=== PATIENT | male | born 1955 | race Caucasian/White ===

== ENCOUNTER → 2018-07-27 12:09 | Outpatient (CLI) | payer OTHER, SELFPAY ==
--- NOTE | 2018-07-27 12:17 | DI.RAD.S_ITS ---
PROCEDURE: XR HIP W PEL IF DONE RT 2V INDICATIONS: Right Hip pain TECHNIQUE: AP pelvis with lateral view(s) of the right hip(s). COMPARISON: None. FINDINGS: Bones: No fractures or dislocations. Pelvic ring appears intact. No suspicious bony lesions. Rzdj-bw-jcamvcdz bilateral hip degeneration. Lower lumbar spondylosis. Soft tissues: The visualized bowel gas pattern is normal. No suspicious soft tissue calcifications. IMPRESSION: Tqkx-pp-ijlsynpd bilateral hip degeneration. Lower lumbar spondylosis. Dictated by: Nabeel Domínguez M.D. on 07/27/2018 at 14:07 Approved by: Nabeel Domínguez M.D. on 07/27/2018 at 14:08
== END ==
PROVIDERS: PCP Student in an Organized Health Care Education/Training Program; Visit Provider Student in an Organized Health Care Education/Training Program
DX: M25.551 Pain in right hip (principal); M16.0 Bilateral primary osteoarthritis of hip; M47.816 Spondylosis without myelopathy or radiculopathy, lumbar region
CPT/HCPCS: 73502

== ENCOUNTER → 2019-01-03 10:35 | Outpatient (CLI) | payer OTHER, SELFPAY | PROVIDERS: PCP Student in an Organized Health Care Education/Training Program; Visit Provider Registered Nurse | DX: N34.2 Other urethritis (principal) | CPT/HCPCS: 87070; 87205 ==

== ENCOUNTER → 2019-12-27 09:47 | Outpatient (CLI) | payer OTHER, SELFPAY ==
[2019-12-27 11:45] LABS: BUN Creatinine Ratio 22.5 (6-22); Blood Urea Nitrogen 16 mg/dL (9-20); Calcium 9.3 mg/dL (8.4-10.2); Carbon Dioxide 31 mmol/L (22-32); Chloride 106 mmol/L (98-107); Estimated Glomerular Filt Rate > 60.0 mL/min (>60); Glucose 89 mg/dL (80-110); HEMOLYSIS < 15 (0-50); Potassium 4.2 mmol/L (3.4-5.1); Sodium 140 mmol/L (137-145)
[2019-12-27 11:59] LABS: Vitamin D 25 Hydroxy (D3) 23.2 ng/mL (30.0-100.0)
[2019-12-27 12:14] LABS: Prostate Specific Antigen Scrn 0.474 ng/mL (0.1-4.0)
== END ==
PROVIDERS: PCP Student in an Organized Health Care Education/Training Program; Referring Provider Student in an Organized Health Care Education/Training Program; Visit Provider Student in an Organized Health Care Education/Training Program
DX: Z12.5 Encounter for screening for malignant neoplasm of prostate (principal); F41.1 Generalized anxiety disorder; Z79.899 Other long term (current) drug therapy; E55.9 Vitamin D deficiency, unspecified
CPT/HCPCS: 36415; 80048; 82306; G0103

== ENCOUNTER → 2020-02-04 11:18 | Outpatient (CLI) | payer OTHER, SELFPAY ==
[2020-02-05 18:36] LABS: Fecal Immunochemical Test Negative (Negative)
== END ==
PROVIDERS: PCP Student in an Organized Health Care Education/Training Program; Referring Provider Student in an Organized Health Care Education/Training Program; Visit Provider Student in an Organized Health Care Education/Training Program
DX: Z12.11 Encounter for screening for malignant neoplasm of colon (principal)
CPT/HCPCS: 82274

== ENCOUNTER → 2021-02-02 10:22 | Outpatient (CLI) | payer OTHER, SELFPAY ==
[2021-02-02 11:16] LABS: Cholesterol 222 mg/dL (140-199); HDL Cholesterol 47 mg/dL (40-60); LDL Cholesterol Calculated 151 mg/dL (<100); Triglycerides 119 mg/dL (35-150)
[2021-02-02 11:42] LABS: Prostate Specific Antigen Scrn 0.526 ng/mL (0.1-4.0)
== END ==
PROVIDERS: PCP Student in an Organized Health Care Education/Training Program; Referring Provider Student in an Organized Health Care Education/Training Program; Visit Provider Student in an Organized Health Care Education/Training Program
DX: Z13.220 Encounter for screening for lipoid disorders (principal); Z12.5 Encounter for screening for malignant neoplasm of prostate
CPT/HCPCS: 36415; 80061; G0103

== ENCOUNTER → 2021-02-04 12:28 | Outpatient (CLI) | payer OTHER, SELFPAY ==
[2021-02-05 10:15] LABS: Fecal Immunochemical Test Negative (Negative)
== END ==
PROVIDERS: PCP Student in an Organized Health Care Education/Training Program; Referring Provider Student in an Organized Health Care Education/Training Program; Visit Provider Student in an Organized Health Care Education/Training Program
DX: Z12.11 Encounter for screening for malignant neoplasm of colon (principal)
CPT/HCPCS: 82274

== ENCOUNTER → 2021-07-20 14:46 | Outpatient (CLI) | payer OTHER, SELFPAY ==
--- NOTE | 2021-07-20 14:47 | DI.RAD.S_ITS ---
PROCEDURE: XR SACRUM COCCYX MIN 2V INDICATIONS: Low back pain from fall TECHNIQUE: 3 views of the sacrum and coccyx acquired. COMPARISON: None. FINDINGS: Bones: No acute, displaced fracture. No suspicious bony lesions. Soft tissues: Visualized bowel gas pattern is normal. No suspicious soft tissue densities. IMPRESSION: No acute osseous abnormality. Dictated by: Toni Casiano M.D. on 07/20/2021 at 16:43 Approved by: Toni Casiano M.D. on 07/20/2021 at 16:44
--- NOTE | 2021-07-20 14:47 | DI.RAD.S_ITS ---
PROCEDURE: XR LUMBAR SPINE 2-3V INDICATIONS: Low back pain from fall TECHNIQUE: 3 views of the lumbar spine were acquired. COMPARISON: None. FINDINGS: Bones: 5 alx-frs-xhalkgg vertebrae are present. Moderate to advanced disc height loss with endplate osteophytosis at L5-S1. Facet arthrosis, most prominent at L5-S1. No vertebral body compression fractures. Soft tissues: Overlying bowel gas pattern is normal. No suspicious soft tissue calcifications. IMPRESSION: Lumbar spine degenerative changes detailed above. Dictated by: Toni Casiano M.D. on 07/20/2021 at 16:44 Approved by: Toni Casiano M.D. on 07/20/2021 at 16:45
== END ==
PROVIDERS: PCP Student in an Organized Health Care Education/Training Program; Referring Provider Student in an Organized Health Care Education/Training Program; Visit Provider Student in an Organized Health Care Education/Training Program
DX: M47.816 Spondylosis without myelopathy or radiculopathy, lumbar region; M47.817 Spondylosis without myelopathy or radiculopathy, lumbosacral region
CPT/HCPCS: 72100; 72220

== ENCOUNTER → 2021-07-22 08:43 | Outpatient (CLI) | payer OTHER, SELFPAY ==
[2021-07-22 09:54] LABS: Cholesterol 164 mg/dL (140-199); HDL Cholesterol 50 mg/dL (40-60); LDL Cholesterol Calculated 98 mg/dL (<100); Triglycerides 80 mg/dL (35-150)
== END ==
PROVIDERS: PCP Student in an Organized Health Care Education/Training Program; Referring Provider Student in an Organized Health Care Education/Training Program; Visit Provider Student in an Organized Health Care Education/Training Program
DX: E78.00 Pure hypercholesterolemia, unspecified (principal)
CPT/HCPCS: 36415; 80061

== ENCOUNTER 2022-05-10 07:09 | Emergency (ER) | payer OTHER, SELFPAY ==
[2022-05-10] VITALS (15 sets, daily range): BP systolic 130–179; BP diastolic 72–82; PULSE 62–79; RESP 8–17; TEMP 36.3; O2SAT 96–100; BMI 24.2
--- NOTE | 2022-05-10 07:30 | DI.CT.S_ITS ---
PROCEDURE: CT HEAD/BRAIN WO CON INDICATIONS: L eye changes and L arm weaknes TECHNIQUE: Noncontrast 4.5 mm thick angled axial sections acquired from the foramen magnum to the vertex, with coronal and sagittal reformats. For radiation dose reduction, the following was used: automated exposure control, adjustment of mA and/or kV according to patient size. COMPARISON: None. FINDINGS: Image quality: Excellent. CSF spaces: Basal cisterns are patent. No extra-axial fluid collections. Ventricles are normal in size and shape. Brain: No midline shift. No intracranial masses or hemorrhage. Montoya-white matter interface is normal. There are subtle hyperdensities in the basal ganglia bilaterally, left greater than right, likely representing very early basal ganglia calcifications. Skull and face: Calvarium and visualized facial bones are intact, without suspicious lesions. Sinuses: Visualized sinuses and mastoids are clear. IMPRESSION: 1. No evidence acute stroke, hemorrhage, or mass. Comment: If suspect acute stroke, consider brain MRI. Dictated by: Benito Hyman M.D. on 05/10/2022 at 7:59 Approved by: Benito Hyman M.D. on 05/10/2022 at 8:01
[2022-05-10 07:47] LABS: Add Manual Diff / Slide Review NO; Basophils Absolute Auto 0 /uL (0-100); Basophils Percent Auto 0.5 % (0-2); Eosinophils Absolute Auto 100 /uL (0-450); Eosinophils Percent Auto 1.1 % (2-4); Hematocrit 40.2 % (41-53); Hemoglobin 13.9 g/dL (13.5-17.5); Lymphocytes Absolute Auto 1300 /uL (1100-4500); Lymphocytes Percent Auto 24.9 % (25-40); Mean Corpuscular HGB Conc 34.5 % (30-36); Mean Corpuscular Hemoglobin 32.5 PG (26-34); Mean Corpuscular Volume 94.3 fL (80-100); Monocytes Absolute Auto 300 /uL (0-900); Monocytes Percent Auto 6.1 % (3-14); Neutrophils Absolute Auto 3500 /uL (1500-7000); Neutrophils Percent Auto 67.4 % (50-75); Platelet Count 192 X10^3/uL (150-400); Red Blood Cell Count 4.27 X10^6/uL (4.5-5.9); Red Cell Distribution Width 12.8 % (11.6-14.8); White Blood Cell Count 5.2 X10^3/uL (4.5-11.0)
[2022-05-10 08:19] LABS: BUN Creatinine Ratio 17.6 (6-22); Blood Urea Nitrogen 12 mg/dL (9-20); Calcium 8.6 mg/dL (8.4-10.2); Carbon Dioxide 28 mmol/L (22-32); Chloride 104 mmol/L (98-107); Estimated Glomerular Filt Rate > 60 mL/min (>60); Glucose 130 mg/dL (80-110); HEMOLYSIS 17 (0-50); Potassium 3.7 mmol/L (3.4-5.1); Sodium 141 mmol/L (137-145)
--- NOTE | 2022-05-10 08:21 | DI.MRI.S_ITS ---
PROCEDURE: MR STROKE Pre- and post-contrast brain MRI, non-contrast brain MR angiogram, pre- and postcontrast neck MR angiogram INDICATIONS: L eye changes and L arm weakness TECHNIQUE: Brain: Noncontrast axial T1 spin echo, axial T2 fast spin echo, sagittal and axial FLAIR, coronal T2 fast spin echo, axial gradient echo, axial diffusion and ADC through the brain. After the administration of contrast, axial 3D VIBE of the cranial vasculature and brain. Brain MRA: Non-contrast 3-D time of flight MR angiogram, with multiple qoqaobf-vjrxwhrvi-diudjjowjm (MIP) reformats performed. Neck MRA: Axial and sagittal TruFISP through the neck. Coronal dynamic MR angiogram during administration of contrast in the arterial and venous phases, with 3-dimenstional recrazb-fcdspouni-qtkuehibsu (MIP) reformats constructed from subtraction images. COMPARISON: [facility], CT, CT HEAD/BRAIN WO CON, 05/10/2022, 7:42. FINDINGS: Image quality: Excellent. BRAIN: CSF spaces: Ventricles are normal in size and shape. Basal cisterns are patent. No extra-axial fluid collections. Brain: No intracranial bleeds or mass effects. Montoya-white matter interface is normal. Diffusion weighted images show no acute ischemic insults. Brainstem appears normal. Normal intravascular flow voids are present. No abnormal intracranial enhancement. Skull and face: Calvarial marrow signal is normal. Orbits appear normal. Sinuses: Sinuses and mastoids are clear. BRAIN MR ANGIOGRAM: Anterior circulation: Intracranial internal carotid arteries are normal in size and enhancement. The flow within the paired anterior cerebral arteries is normal and symmetric. The flow within the middle cerebral arteries is normal and symmetric. The anterior communicating artery is seen. No stenoses, occlusions, or aneurysms. Posterior circulation: The visualized portions of the vertebral arteries demonstrate normal caliber, and join to form a normal appearing basilar artery. The flow within the posterior cerebral arteries is normal and symmetric. No stenoses, occlusions, or aneurysms. NECK MR ANGIOGRAM: Carotids: Great vessels demonstrate a conventional anatomy as they arise from the aortic arch. The origins of the common carotid arteries appear patent. The calibers and courses of both common carotid arteries are normal. The bifurcation regions appear normal bilaterally. The internal carotid arteries demonstrate normal course and caliber. Posterior circulation: The origins of the vertebral arteries appear patent. More superior portions of both vertebral arteries demonstrate normal course and caliber, and join to form a normal appearing basilar artery. Miscellaneous: Subclavian arteries appear patent. Pre-contrast images through the neck show no soft tissue abnormalities. IMPRESSION: 1. No acute intracranial process. 2. No areas of hemodynamically significant stenosis, vascular occlusion or aneurysmal dilation within the anterior circulation. 3. No areas of hemodynamically significant stenosis, vascular occlusion or aneurysmal dilation within the posterior circulation. 4. No areas of hemodynamically significant stenosis, vascular occlusion or aneurysmal dilation within the neck vasculature. Dictated by: Mary Cast M.D. on 05/10/2022 at 11:05 Approved by: Mary Cast M.D. on 05/10/2022 at 11:17
--- NOTE | 2022-05-10 08:21 | ED_ITS ---
HPI - General Adult General Chief complaint: Eye Problems Stated complaint: POSSIBLE STROKE Time Seen by Provider: 05/10/22 07:22 Source: patient and family Mode of arrival: Ambulatory Limitations: no limitations History of Present Illness HPI narrative: patient is a 66-year-old male. Does wear corrective lenses. Also has a history of migraine headaches. Has not had a migraine and sometime. No prior eye surgeries. On Tuesday had a fairly sudden onset of what he describes as a floater in his left eye. He describes it in the upper portion of his left eye. It does not move when he looks in different directions. It does not involve his right eye. He does not have headache. No problems swallowing. He is also noticed some numbness in his left arm and his left upper chest. He describes it as a cool sensation. That is still there but he does not notice it as much unless something touches his arm. This occurred 3 days ago. It has been consistent since then. Has not tried anything for his symptoms. He went to an outside emergency department yesterday but after walking in noticed that there was a long wait so he decided to stay locally and then come to this emergency department this morning. Related Data Home Medications Medication Instructions Recorded Confirmed loratadine 10 mg tablet (Allergy 10 mg PO DAILY 03/02/18 07/20/21 Relief (loratadine)) Previous Rx's Medication Instructions Recorded famotidine 20 mg tablet 20 mg PO DAILY #90 tabs 05/31/20 paroxetine HCl 20 mg tablet (Paxil) 20 mg PO DAILY #90 tabs 07/22/21 atorvastatin 20 mg tablet 20 mg PO BEDTIME #90 tabs 03/10/22 Allergies Allergy/AdvReac Type Severity Reaction Status Date / Time No Known Drug Allergies Allergy Verified 07/20/21 14:15 Review of Systems Review of Systems ROS Unobtainable: All systems reviewed & are unremarkable except as noted in HPI and below Patient History Medical History Foot pain (2016) Migraines (1983) Right hip pain Shoulder pain (2015) Tinnitus of both ears (2007) Surgical History (Updated 03/02/18 @ 15:03 by Ronel Fletcher LPN) Hx of knee surgery (2001) Family History (Updated 03/02/18 @ 15:04 by Ronel Fletcher LPN) Father Cancer Mother No problems noted. Social History Smoking Status: Never smoker alcohol intake: current substance use type: does not use Smoking Status: Never smoker alcohol intake frequency: a few times a month Substance Use Type: does not use Exam Initial Vital Signs Initial Vital Signs: Vital Signs Temperature 97.4 F L 05/10/22 07:17 Pulse Rate 72 05/10/22 07:17 Respiratory Rate 16 05/10/22 07:17 Blood Pressure 179/81 H 05/10/22 07:17 Pulse Oximetry 100 05/10/22 07:17 Oxygen Delivery Method 05/10/22 07:17 Const General: comfortable and well developed HENMT Head: normal to inspection and normocephalic Face and sinus: normal facial exam Mouth: oral mucosae normal Eyes Conjunctivae: conjunctivae normal Pupils: PERRL Resp Effort & Inspection: normal respiratory effort Auscultation: clear to auscultation bilaterally Cardio Rate: regular rate Rhythm: regular rhythm GI Inspection: normal to inspection Skin General: no rashes or lesions noted Neuro General: patient alert, patient awake, patient oriented x3 and moves all extremities Cranial Nerves: CN's II-XI intact bilaterally Cognition: normal cognition Speech: speech normal Gait: normal gait Motor: muscle tone normal throughout Extrem General: normal to inspection and capillary refill normal Psych Appearance: grossly normal and well kempt Scores GCS Agata coma scale eye opening: Spontaneous Captiva coma scale verbal response: Orientated Captiva coma scale motor response: Obey commands Captiva coma scale total score: 15 NIH Stroke Scale Level of Conciousness: Alert, keenly responsive Ask month/age: Answers both questions correctly. Open/close eyes, close hand: Performs both tasks correctly Best gaze horizontal: Normal Visual burger: No visual loss Facial palsy: Normal symetrical movement Left arm drift: No drift for full 10 sec Right arm drift: No drift for full 10 sec Left leg drift: No drift for full 5 sec Right leg drift: No drift for full 5 sec Limb ataxia: Absent Sensory on face/arms/legs: Mild to moderate sensory loss, can tell touch Best language: No aphasia, normal Dysarthria: Normal Extinction or inattention: No abnormality Total NIH Stroke scale score: 1 Course Orders Ordered: Discontinued Medications Diazepam (Diazepam 10 Mg/2 Ml Syringe) 2 mg IV NOW ONE Stop: 05/10/22 09:37 Last Admin: 05/10/22 09:45 Dose: 2 mg Documented By: RB Vital Signs Vital signs: Vital Signs - 8 hr 05/10/22 10:50 05/10/22 10:51 05/10/22 10:51 Pulse Rate 68 76 Respiratory Rate Blood Pressure 159/82 H Pulse Oximetry 99 99 05/10/22 11:00 05/10/22 11:00 05/10/22 11:30 Pulse Rate 66 Respiratory Rate 16 Blood Pressure 140/75 130/72 Pulse Oximetry 98 05/10/22 11:30 05/10/22 12:00 05/10/22 12:00 Pulse Rate 68 67 Respiratory Rate 14 12 Blood Pressure 142/76 H Pulse Oximetry 96 97 Medical Decision Making Lab Data Lab results reviewed: Yes I reviewed the patient's lab results. Result diagrams: 05/10/22 07:25 05/10/22 07:25 Labs: Lab Results 05/10/22 05/10/22 Range/Units 07:25 07:25 WBC 5.2 (4.5-11.0) X10^3/uL RBC 4.27 L (4.5-5.9) X10^6/uL Hgb 13.9 (13.5-17.5) g/dL Hct 40.2 L (41-53) % MCV 94.3 (80-100) fL MCH 32.5 (26-34) PG MCHC 34.5 (30-36) % RDW 12.8 (11.6-14.8) % Plt Count 192 (150-400) X10^3/uL Neut % (Auto) 67.4 (50-75) % Lymph % (Auto) 24.9 L (25-40) % Billings % (Auto) 6.1 (3-14) % Eos % (Auto) 1.1 L (2-4) % Baso % (Auto) 0.5 (0-2) % Neut # (Auto) 3500 (3423-8427) /uL Lymph # (Auto) 1300 (1560-5767) /uL Billings # (Auto) 300 (0-900) /uL Eos # (Auto) 100 (0-450) /uL Baso # (Auto) 0 (0-100) /uL Sodium 141 (137-145) mmol/L Potassium 3.7 (3.4-5.1) mmol/L Chloride 104 (98-107) mmol/L Carbon Dioxide 28 (22-32) mmol/L BUN 12 (9-20) mg/dL Creatinine 0.68 (0.66-1.25) mg/dL Estimated GFR > 60 (>60) mL/min BUN/Creatinine Ratio 17.6 (6-22) Glucose 130 H (80-110) mg/dL Calcium 8.6 (8.4-10.2) mg/dL Imaging Data CT scan - head: Radiologist's Impression: Close Head CT (Signed) Benito Hyman - 05/10/22 Sacrum and Coccyx X-Ray (Signed) Toni Casiano - 07/20/21 Lumbar Spine X-Ray (Signed) Toni Casiano - 07/20/21 Hip X-Ray (Signed) Nabeel Domínguez - 07/27/18 [place] [address] CT Scan Report Signed Patient: Chava Anderson MR#: [id number] : 1955 Acct:[id number] Age/Sex: 66 / M Date of Service: 05/10/22 Loc: ED Accession Number: [id number] ?? Procedure: CT head/brain wo con Ordering Provider: Antonio Bain D.O. PROCEDURE:? CT HEAD/BRAIN WO CON ? INDICATIONS:? L eye changes and L arm weaknes ? TECHNIQUE:? Noncontrast 4.5 mm thick angled axial sections acquired from the foramen magnum to the vertex, with coronal and sagittal reformats.? For radiation dose reduction, the following was used:? automated exposure control, adjustment of mA and/or kV according to patient size.? ? COMPARISON:? None. ? FINDINGS:? Image quality:? Excellent.? ? CSF spaces:? Basal cisterns are patent.? No extra-axial fluid collections.? Ventricles are normal in size and shape.? ? Brain:? No midline shift.? No intracranial masses or hemorrhage.? Montoya-white matter interface is normal.? There are subtle hyperdensities in the basal ganglia bilaterally, left greater than right, likely representing very early basal ganglia calcifications. ? Skull and face:? Calvarium and visualized facial bones are intact, without suspicious lesions.? ? Sinuses:? Visualized sinuses and mastoids are clear.? ? IMPRESSION:? ? 1. No evidence acute stroke, hemorrhage, or mass. ? Comment:? If suspect acute stroke, consider brain MRI.? ? ? Dictated by: Benito Hyman M.D. on 05/10/2022 at 7:59 ? ? Approved by: Benito Hyman M.D. on 05/10/2022 at 8:01 MR stroke: Radiologist's Impression: [place] [address] Magnetic Resonance Report Signed Patient: Chava Anderson MR#: [id number] : 1955 Acct:[id number] Age/Sex: 66 / M Date of Service: 05/10/22 Loc: ED Accession Number: [id number] ?? Procedure: MR stroke Ordering Provider: Antonio Bain D.O. PROCEDURE:? MR STROKE Pre- and post-contrast brain MRI, non-contrast brain MR angiogram, pre- and po stcontrast neck MR angiogram ? INDICATIONS:? L eye changes and L arm weakness ? TECHNIQUE:? Brain:? Noncontrast axial T1 spin echo, axial T2 fast spin echo, sagittal and axial FLAIR, coronal T2 fast spin echo, axial gradient echo, axial diffusion and ADC through the brain.? After the administration of contrast, axial 3D VIBE of the cranial vasculature and brain.? Brain MRA:? Non-contrast 3-D time of flight MR angiogram, with multiple tzwnxyb-myvxzcbuu-mfnmqdntvc (MIP) reformats performed.? Neck MRA:? Axial and sagittal TruFISP through the neck.? Coronal dynamic MR angiogram during administration of contrast in the arterial and venous phases, with 3- dimenstional kocvkhc-ctjrfhdpi-oqpcyzpewa (MIP) reformats constructed from subtraction images.? ? COMPARISON:? [facility], CT, CT HEAD/BRAIN WO CON, 05/10/2022, 7:42. ? FINDINGS:? Image quality:? Excellent.? ? BRAIN:? CSF spaces:? Ventricles are normal in size and shape.? Basal cisterns are patent.? No extra-axial fluid collections.? Brain:? No intracranial bleeds or mass effects.? Montoya-white matter interface is normal.? Diffusion weighted images show no acute ischemic insults.? Brainstem appears normal.? Normal intravascular flow voids are present.? No abnormal intracranial enhancement.? Skull and face:? Calvarial marrow signal is normal.? Orbits appear normal.? Sinuses:? Sinuses and mastoids are clear.? ? BRAIN MR ANGIOGRAM:? Anterior circulation:? Intracranial internal carotid arteries are normal in size and enhancement.? The flow within the paired anterior cerebral arteries is normal and symmetric.? The flow within the middle cerebral arteries is normal and symmetric.? The anterior communicating artery is seen.? No stenoses, occlusions, or aneurysms.? Posterior circulation:? The visualized portions of the vertebral arteries demonstrate normal caliber, and join to form a normal appearing basilar artery.? The flow wi thin the posterior cerebral arteries is normal and symmetric.? No stenoses, occlusions, or aneurysms.? ? NECK MR ANGIOGRAM:? Carotids:? Great vessels demonstrate a conventional anatomy as they arise from the aortic arch.? The origins of the common carotid arteries appear patent.? The calibers and courses of both common carotid arteries are normal.? The bifurcation regions appear normal bilaterally.? The internal carotid arteries demonstrate normal course and caliber. ? Posterior circulation:? The origins of the vertebral arteries appear patent.? More superior portions of both vertebral arteries demonstrate normal course and caliber, and join to form a normal appearing basilar artery.? Miscellaneous:? Subclavian arteries appear patent.? Pre-contrast images through the neck show no soft tissue abnormalities.? ? IMPRESSION:? ? 1. No acute intracranial process. ? 2. No areas of hemodynamically significant stenosis, vascular occlusion or aneurysmal dilation within the anterior circulation. ? 3. No areas of hemodynamically significant stenosis, vascular occlusion or aneurysmal dilation within the posterior circulation. ? 4. No areas of hemodynamically significant stenosis, vascular occlusion or aneurysmal dilation within the neck vasculature. ? Dictated by: Mary Cast M.D. on 05/10/2022 at 11:05 ? ? Approved by: Mary Cast M.D. on 05/10/2022 at 11:1 ECG Data Attestation: I personally reviewed and interpreted this ECG as follows: Interpretation: Sinus rhythm Ventricular rate of 64 Normal axis Normal QRS Normal QTC No ST T wave changes MDM Narrative Medical decision making narrative: MRI shows no ischemic changes. Subjective tingling to the left arm. I did discuss the case with Dr. Patricio who will see the patient after discharge from the emergency department. I discussed the need for the patient to follow-up with ophthalmology after discharge. He was given return precautions. He expressed understanding and agreement. Discharge Plan Departure Patient Disposition: Home Clinical Impression: Floaters Activity Restrictions/Additional Instructions: After discharge from the hospital you can go over to the director on air's here at the hospital. I did discuss your case with Dr. Patricio. Their office will see you today. Prescriptions: No Action loratadine [Allergy Relief (loratadine)] 10 mg tablet 10 mg PO DAILY paroxetine HCl [Paxil] 20 mg tablet 20 mg PO DAILY Qty: 90 1RF atorvastatin 20 mg tablet 20 mg PO BEDTIME Qty: 90 3RF famotidine 20 mg tablet 20 mg PO DAILY Qty: 90 0RF Referrals: Kamlesh Faria MD [Primary Care Provider] - Visit Report Forms: Patient Portal/API
[2022-05-10] MEDS: diazePAM 10 MG/2 ML SYRINGE 2 MG IV (09:45)
== END 2022-05-10 12:28 | disposition home or self-care (01) ==
PROVIDERS: Emergency Provider Emergency Medicine; PCP Student in an Organized Health Care Education/Training Program
DX: H43.399 Other vitreous opacities, unspecified eye (principal); R29.701 NIHSS score 1; R07.9 Chest pain, unspecified
CPT/HCPCS: 36415; 70450; 70548; 70553; 80048; 85025; 93005; 93010; 99284; A9579; J3360

== ENCOUNTER → 2022-06-30 10:15 | Outpatient (CLI) | payer OTHER, SELFPAY ==
[2022-06-30 11:30] LABS: Prostate Specific Antigen Scrn 0.526 ng/mL (0.1-4.0)
[2022-07-01 16:34] LABS: Hep C Virus Ab w/Reflex Quant NEGATIVE s/c (NEGATIVE)
[2022-07-01 17:02] LABS: Fecal Immunochemical Test Negative (Negative)
== END ==
PROVIDERS: PCP Student in an Organized Health Care Education/Training Program; Referring Provider Student in an Organized Health Care Education/Training Program; Visit Provider Student in an Organized Health Care Education/Training Program
DX: Z12.5 Encounter for screening for malignant neoplasm of prostate (principal); Z11.59 Encounter for screening for other viral diseases; Z12.11 Encounter for screening for malignant neoplasm of colon
CPT/HCPCS: 36415; 82274; 86803; G0103